=== PATIENT | female | born 1955 | race American Indian/Alaskan Native ===

== ENCOUNTER 2018-04-12 20:29 | Emergency (ER) | payer OTHER ==
[2018-04-12 21:45] LABS: Basophils # (Auto) 0.1 K/mm3 (0.0-0.1); Basophils % (Auto) 0.9 % (0.0-1.8); Eosinophils # (Auto) 0.4 K/mm3 (0.0-0.4); Eosinophils % (Auto) 5.5 % (0.0-4.3); Hematocrit 40.1 % (30.3-42.9); Lymphocytes % (Auto) 37.3 % (13.4-35.0); Mean Corpuscular HGB Conc 32 % (30-34); Mean Corpuscular Hemoglobin 29 pg (28-32); Mean Corpuscular Volume 89 fl (79-97); Monocytes # (Auto) 0.7 K/mm3 (0.0-0.8); Monocytes % (Auto) 8.1 % (0.0-7.3); Platelet Count 266 K/mm3 (140-440); Red Cell Distribution Width 15.4 % (13.2-15.2)
[2018-04-12 21:57] LABS: BUN/Creatinine Ratio 23; Blood Urea Nitrogen 18 mg/dL (7-17); Calcium 9.5 mg/dL (8.4-10.2); Hemolysis Index 9
--- NOTE | 2018-04-12 22:56 | Cat Scan Report ---
FINAL REPORT EXAM: CT HEAD/BRAIN WO CON HISTORY: headache TECHNIQUE: CT was performed from the foramen magnum through the vertex in the axial plane without the use of intravenous contrast. PRIORS: None. FINDINGS: The jasso/white matter attenuation pattern is normal. There is no mass lesion or mass effect. There are no abnormal extra-axial fluid collections. There is no evidence of acute intracranial hemorrhage or infarct. The ventricles are of normal size and configuration. The skull and orbits are unremarkable. The visualized paranasal sinuses are clear. IMPRESSION: Normal CT of the head.
[2018-04-13 02:08] VITALS: BP 151/95
--- NOTE | 2018-04-13 02:48 | Emergency Department Report ---
ED General Adult HPI - General Chief complaint: High BP Stated complaint: HIGH BLOOD PRESSURE Time Seen by Provider: 04/13/18 02:41 Source: patient Mode of arrival: Ambulatory Limitations: No Limitations - History of Present Illness Initial comments: Patient is 62 years old female history of hypertension. Patient presented to the ER complaining of high blood pressure and headache. She stated that her blood pressure has been well controlled with lisinopril 10 mg and bisoprolol 5 mg. The patient denied any weakness, numbness or tingling sensation. No neck pain or neck stiffness or fever. Patient denied any bowel or bladder incontinence. 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 Severity scale (0 -10): 7 - Related Data Allergies Allergy/AdvReac Type Severity Reaction Status Date / Time No Known Allergies Allergy Unverified 04/12/18 21:19 ED Review of Systems ROS: Stated complaint: HIGH BLOOD PRESSURE Other details as noted in HPI Comment: All other systems reviewed and negative Constitutional: denies: fever, weakness Eyes: denies: eye pain Respiratory: denies: cough, orthopnea, shortness of breath, SOB with exertion, SOB at rest, wheezing Cardiovascular: denies: chest pain, palpitations, dyspnea on exertion Gastrointestinal: denies: abdominal pain, nausea, vomiting, diarrhea, constipation, hematemesis, melena, hematochezia Musculoskeletal: denies: back pain Neurological: denies: headache, weakness, numbness, paresthesias, confusion, abnormal gait ED Past Medical Hx - Past Medical History Previous Medical History?: Yes Hx Hypertension: Yes - Surgical History Past Surgical History?: No - Social History Smoking Status: Never Smoker Substance Use Type: None ED Physical Exam - General Limitations: No Limitations General appearance: alert, in no apparent distress - Head Head exam: Present: atraumatic, normocephalic, normal inspection - Eye Eye exam: Present: normal appearance, PERRL - ENT ENT exam: Present: normal exam, normal orophraynx, mucous membranes moist - Neck Neck exam: Present: normal inspection, full ROM. Absent: tenderness, meningismus, lymphadenopathy, thyromegaly - Respiratory Respiratory exam: Present: normal lung sounds bilaterally. Absent: respiratory distress, wheezes, rales, rhonchi, stridor, chest wall tenderness, accessory muscle use, decreased breath sounds, prolonged expiratory - Cardiovascular Cardiovascular Exam: Present: regular rate, normal rhythm, normal heart sounds - GI/Abdominal GI/Abdominal exam: Present: soft, normal bowel sounds. Absent: distended, tenderness, guarding, rebound, rigid, organomegaly, mass, bruit, pulsatile mass , hernia - Extremities Exam Extremities exam: Present: normal inspection, full ROM, normal capillary refill - Back Exam Back exam: Present: normal inspection, full ROM. Absent: tenderness, CVA tenderness (R), CVA tenderness (L), muscle spasm, paraspinal tenderness, vertebral tenderness, rash noted - Neurological Exam Neurological exam: Present: alert, oriented X3, CN II-XII intact, normal gait, reflexes normal. Absent: abnormal gait, motor sensory deficit - Psychiatric Psychiatric exam: Present: normal mood. Absent: depressed, suicidal ideation - Skin Skin exam: Present: warm, intact, normal color ED Course Vital Signs 04/12/18 04/13/18 04/13/18 21:16 02:00 02:07 Temperature 98.1 F 98.1 F Pulse Rate 68 68 Respiratory 17 18 16 Rate Blood Pressure 174/106 Blood Pressure 151/95 [Right] O2 Sat by Pulse 97 100 100 Oximetry ED Medical Decision Making - Lab Data Result diagrams: 04/12/18 21:32 04/12/18 21:32 - Radiology Data Radiology results: report reviewed Referring Physician: MIRA TINSLEY Patient Name: FARAZ LAZO Date of : 1955 Sex: Female Report Date: 2018-04-12 Report Status: Finalized Findings [address] [address] Cat Scan Report Signed Patient: FARAZ LAZO MR#: [id number] : 1955 Acct:[id number] Age/Sex: 62 / F ADM Date: 04/12/18 Loc: ED Attending Dr: Ordering Physician: MIRA TINSLEY MD Date of Service: 04/12/18 Procedure(s): CT head/brain wo con Accession Number(s): [id number] cc: MIRA TINSLEY MD FINAL REPORT EXAM: CT HEAD/BRAIN WO CON HISTORY: headache TECHNIQUE: CT was performed from the foramen magnum through the vertex in the axial plane without the use of intravenous contrast. PRIORS: None. FINDINGS: The jasso/white matter attenuation pattern is normal. There is no mass lesion or mass effect. There are no abnormal extra-axial fluid collections. There is no evidence of acute intracranial hemorrhage or infarct. The ventricles are of normal size and configuration. The skull and orbits are unremarkable. The visualized paranasal sinuses are clear. IMPRESSION: Normal CT of the head. Transcribed By: [facility] [place] Dictated By: NEEL SCHULTE MD Electronically Authenticated By: NEEL SCHULTE MD Signed Date/Time: 04/12/182251 DD/ 51 TD/TT: 04/12/182251 Critical care attestation.: If time is entered above; I have spent that time in minutes in the direct care of this critically ill patient, excluding procedure time. ED Disposition Clinical Impression: Malignant hypertension, Headache Disposition: DC-01 TO HOME OR SELFCARE Is pt being admited?: No Condition: Stable Instructions: Hypertension (ED), Acute Headache (ED) Referrals: PRIMARY CAREMD [Primary Care Provider] - 3-5 Days
== END 2018-04-13 03:04 | disposition home or self-care (01) ==
LOC: EDBD → ED 20:29
DX: I10 Essential (primary) hypertension (principal)
CPT/HCPCS: 36415; 70450; 80048; 85025; 99284